=== PATIENT | female | born 2000 | race American Indian/Alaskan Native ===

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

== ENCOUNTER 2021-04-02 13:40 | Emergency (ER) | payer MEDICAID ==
[2021-04-02 14:06] VITALS: BP 118/63
--- NOTE | 2021-04-02 14:11 | Emergency Department Report ---
ED Female HPI - General Chief complaint: Abdominal Pain Stated complaint: CONCIERGE RECEPTIONIST SENT POSS RUPTURED CYST Time Seen by Provider: 04/02/21 13:59 Source: patient Mode of arrival: Wheelchair Limitations: No Limitations - History of Present Illness Initial comments: Chief complaint: Groin pain pelvic pain HPI: 20-year-old female history of ovarian cyst, seizure, recurrent syncope, migraine headache who presents with right groin pain pelvic pain for the last several days. She is currently at the end of her menstrual cycle. She is not sexually active. She had follow-up appointment with her data integration developer Dr. Tse. Due to severe pain patient was referred to ER for evaluation. Patient was diagnosed with ruptured ovarian cyst several months earlier. Today was a routine appointment for follow-up with Dr. Tse data integration developer. Pain is now 19. She denies vaginal discharge. She currently has light menstrual flow. Patient was evaluated at [facility] and data integration developer for recurrent pelvic pain. Unable to diagnose rupture cyst by imaging. However Dr. Tse suspects that patient did have ruptured ovarian cyst. According to mother's report, previous imaging did confirm cystic ovary. Dr. Tse prescribed control pill. Today's appointment was follow-up after initial treatment plan. MD Complaint: pelvic pain -: Gradual, days(s) (Last several days) Severity: severe Severity scale (0 -10): 9 Quality: sharp Consistency: constant Improves with: none Worsens with: none Are you Now?: No Associated Symptoms: other (End of menstrual cycle) - Related Data Sexually active: No Previous Rx's Medication Instructions Recorded Last Taken Type Albuterol Sulfate [Ventolin HFA] 2 puff IH Q4H PRN #1 hfa.aer.ad 12/24/15 Unknown Rx Prednisone [predniSONE 5 mg (6-Day 5 mg PO .TAPER #1 tab.ds.pk 12/24/15 Unknown Rx Pack, 21 Tabs)] traMADoL [Ultram] 50 mg PO Q6HR PRN #20 tablet 12/24/15 Unknown Rx traMADoL [Ultram 50 MG tab] 50 mg PO Q6HR PRN #20 tablet 08/08/17 Unknown Rx Acetaminophen/Codeine [Tylenol 1 tab PO Q6H PRN #30 tab 04/02/21 Unknown Rx /Codeine # 3 tab] Allergies Allergy/AdvReac Type Severity Reaction Status Date / Time cefdinir [From Omnicef] Allergy Swelling Verified 08/07/17 23:56 cyclobenzaprine Allergy Swelling Verified 08/07/17 23:57 [From Flexeril] acetaminophen [From Tylenol] AdvReac Unknown Verified 12/24/15 02:28 ibuprofen [From Motrin] AdvReac Unknown Verified 12/24/15 02:28 peanut AdvReac Unknown Verified 12/24/15 02:27 ED Review of Systems ROS: Stated complaint: CONCIERGE RECEPTIONIST SENT POSS RUPTURED CYST Other details as noted in HPI Comment: All other systems reviewed and negative Constitutional: denies: chills, fever, malaise Respiratory: denies: cough, shortness of breath Gastrointestinal: other (Right groin pelvic pain). denies: abdominal pain, nausea, vomiting, diarrhea Genitourinary: denies: urgency, dysuria, frequency, hematuria ED Past Medical Hx - Past Medical History Previous Medical History?: Yes Hx Hypertension: No Hx Headaches / Migraines: Yes Hx Seizures: Yes Additional medical history: Recurrent syncope, ovarian cyst - Social History Smoking Status: Never Smoker Substance Use Type: None - Medications Home Medications: Home Medications Medication Instructions Recorded Confirmed Last Taken Type Albuterol Sulfate [Ventolin HFA] 2 puff IH Q4H PRN #1 hfa.aer.ad 12/24/15 Unknown Rx Prednisone [predniSONE 5 mg (6-Day 5 mg PO .TAPER #1 tab.ds.pk 12/24/15 Unknown Rx Pack, 21 Tabs)] traMADoL [Ultram] 50 mg PO Q6HR PRN #20 tablet 12/24/15 Unknown Rx traMADoL [Ultram 50 MG tab] 50 mg PO Q6HR PRN #20 tablet 08/08/17 Unknown Rx Acetaminophen/Codeine [Tylenol 1 tab PO Q6H PRN #30 tab 04/02/21 Unknown Rx /Codeine # 3 tab] ED Physical Exam - General Limitations: No Limitations General appearance: alert, in no apparent distress, other (In severe pain) - Head Head exam: Present: atraumatic, normocephalic - Eye Eye exam: Present: normal appearance - ENT ENT exam: Present: mucous membranes moist - Neck Neck exam: Present: normal inspection - Respiratory Respiratory exam: Present: normal lung sounds bilaterally. Absent: respiratory distress - Cardiovascular Cardiovascular Exam: Present: regular rate, normal rhythm, normal heart sounds. Absent: systolic murmur, diastolic murmur, rubs, gallop - GI/Abdominal GI/Abdominal exam: Present: soft, normal bowel sounds. Absent: distended, tenderness, guarding, rebound - Extremities Exam Extremities exam: Present: normal inspection - Neurological Exam Neurological exam: Present: alert, oriented X3 - Psychiatric Psychiatric exam: Present: normal affect, normal mood - Skin Skin exam: Present: warm, dry, intact, normal color. Absent: rash ED Course Vital Signs 04/02/21 04/02/21 14:02 16:41 Temperature 99.6 F Pulse Rate 69 Respiratory 16 Rate Blood Pressure 118/63 [Right] O2 Sat by Pulse 100 99 Oximetry - Reevaluation(s) Reevaluation #1: 04/02/21 14:32 Patient has not been sexually active. She is uncomfortable with transvaginal probe. [employer] Architect recommended oral intake considering patient has empty bladder. ED Medical Decision Making - Lab Data Result diagrams: 04/02/21 14:19 04/02/21 14:19 - Medical Decision Making Recurrent pelvic pain over the last several months refer to emergency department after routine appointment with data integration developer Dr. Alvarado. Patient diagnosis in cludes ovarian cyst rupture, endometriosis, dysmenorrhea. Patient has never been sexually active PID not likely. No abdominal tenderness to indicate appendicitis. After ultrasound is obtained my colleague will make the appropriate disposition. Critical care attestation.: If time is entered above; I have spent that time in minutes in the direct care of this critically ill patient, excluding procedure time. ED Disposition Clinical Impression: Ovarian cyst, Abdominal pain Disposition: 01 HOME / SELF CARE / HOMELESS Is pt being admited?: No Does the pt Need Aspirin: No Condition: Stable Instructions: Ovarian Cyst, Abdominal Pain (ED) Additional Instructions: return if worse Prescriptions: Acetaminophen/Codeine [Tylenol /Codeine # 3 tab] 1 tab PO Q6H PRN #30 tab PRN Reason: pain Referrals: RENEE TSE MD [Staff Physician] - 3-5 Days PRIMARY CARE, [Primary Care Provider] - 3-5 Days
[2021-04-02] MEDS ORDERED: KETOROLAC 30 MG/1 ML INJ IM ONE (14:23)
[2021-04-02] MEDS ORDERED: traMADol 50 MG TAB PO ONE (14:23)
[2021-04-02] MEDS ORDERED: ONDANSETRON 4 MG ODT TAB PO ONE (14:23)
[2021-04-02 14:33] LABS: Basophils # (Auto) 0.1 K/mm3 (0.0-0.1); Basophils % (Auto) 0.7 % (0.0-1.8); Eosinophils % (Auto) 0.3 % (0.0-4.3); Hematocrit 27.2 % (30.3-42.9); Hemoglobin 8.3 gm/dl (10.1-14.3); Lymphocytes % (Auto) 9.9 % (13.4-35.0); Mean Corpuscular HGB Conc 31 % (30-34); Monocytes # (Auto) 0.5 K/mm3 (0.0-0.8); Monocytes % (Auto) 5.1 % (0.0-7.3); Platelet Count 625 K/mm3 (140-440); Red Blood Count 4.25 M/mm3 (3.65-5.03)
[2021-04-02 14:34] LABS: Mean Corpuscular Volume 64 fl (79-97); Red Cell Distribution Width 21.4 % (13.2-15.2)
[2021-04-02 14:52] LABS: Blood Urea Nitrogen 11 mg/dL (7-17); Calcium 9.3 mg/dL (8.4-10.2); Hemolysis Index 1
[2021-04-02 15:01] LABS: Bilirubin,Urine NEG (Negative); Blood,Urine SM (Negative); Color,Urine Yellow (Yellow); Mucus,Urine 3+ /HPF; Urobilinogen,Urine < 2.0 mg/dL (<2.0)
[2021-04-02 15:02] LABS: BUN/Creatinine Ratio 22
[2021-04-02] MEDS ORDERED: MORPHINE 4 MG/1 ML INJ IM ONE (15:27)
--- NOTE | 2021-04-02 16:44 | Ultrasound Report ---
ULTRASOUND PELVIS COMPLETE INDICATION / CLINICAL INFORMATION: Right groin pain. TECHNIQUE: Transabdominal. Duplex Color Doppler used: Yes. COMPARISON: None available FINDINGS: UTERUS: Present. - Appearance (if present): No significant abnormality. - Size in cm (if present): 6.3 x 4.0 x 6.9. - Endometrial Complex (if present): No significant abnormality.. Thickness in cm (if measured) = 0.7 - Mass lesions: None. - Additional findings: None. RIGHT ADNEXA: There are multiple cystic structures in the right adnexa measuring up to 2 cm. The righ t ovary is not clearly defined. It is unclear if this represents multiple ovarian cysts or right hydr osalpinx. Consider correlation with transvaginal exam. Normal color Doppler blood flow. LEFT ADNEXA: No significant ovarian cyst or mass. Normal color Doppler blood flow. URINARY BLADDER: No significant abnormality. FREE FLUID: None. ADDITIONAL FINDINGS: None. IMPRESSION: Unremarkable uterus and left ovary. Abnormal appearance of the right adnexa as described above. This is unclear if this represents ovaria n cystic disease or right hydrosalpinx. See above. No evidence for torsion. Signer Name: Cole Valerio Jr, MD Signed: 04/02/2021 4:39 PM Workstation Name: [id number]
== END 2021-04-02 17:23 | disposition home or self-care (01) ==
LOC: ED 13:40
DX: N83.299 Other ovarian cyst, unspecified side (principal); R10.2 Pelvic and perineal pain; R10.30 Lower abdominal pain, unspecified; G40.909 Epilepsy, unspecified, not intractable, without status epilepticus; G43.909 Migraine, unspecified, not intractable, without status migrainosus; R55 Syncope and collapse; Z88.1 Allergy status to other antibiotic agents; Z88.6 Allergy status to analgesic agent; Z91.010 Allergy to peanuts
CPT/HCPCS: 36415; 76856; 80048; 81001; 84703; 85025; 96372; 99284; J1885; J2270; Q0162

== ENCOUNTER 2021-08-28 10:39 | Outpatient (CLI) | payer MEDICAID ==
--- NOTE | 2021-08-28 12:25 | Cat Scan Report ---
CT ABDOMEN AND PELVIS WITH CONTRAST HISTORY: R10.30 LOWER ABDOMINAL PAIN,UNSPECIFIED OMNI 300 100 ML COMPARISON: Prior CT on 04/22/2021 TECHNIQUE: Routine abdominal and pelvic CT exam performed following intravenous contrast administrat ion.. All CT scans at this location are performed using CT dose reduction for ALARA by means of autom ated exposure control. FINDINGS: CT ABDOMEN: Lung Bases: No significant abnormality. Liver: No significant abnormality. Biliary: No significant abnormality. Spleen: No significant abnormality. Unenlarged. Pancreas: No significant abnormality. Adrenals: No significant abnormality. Kidneys: No significant abnormality. Lymphatics: No lymphadenopathy. Vasculature: No significant abnormality. Bowel/Peritoneum: No significant abnormality. No free air. No free fluid. Appendix not visualized. No pericecal inflammation. CT PELVIC: : The pelvic organs appear grossly normal. There is a small amount of free fluid in the pelvis. Lymphatics: No lymphadenopathy. Osseous Structures: No aggressive appearing osseous lesions. Additional Findings: None IMPRESSION: 1. Small amount of free fluid in the pelvis, likely physiologic. 2. No additional acute findings. Signer Name: Rich Ceron MD Signed: 08/28/2021 12:20 PM Workstation Name: [email or web address]
== END 2021-08-28 10:40 | disposition home or self-care (01) ==
LOC: CT 10:39
PROVIDERS: ATTEND Surgery
DX: R10.30 Lower abdominal pain, unspecified (principal)
CPT/HCPCS: 74177; Q9967

== ENCOUNTER 2021-08-28 12:23 | Emergency (ER) | payer MEDICAID ==
[2021-08-28 12:58] VITALS: BP 133/97
[2021-08-28] MEDS ORDERED: SODIUM CHLORIDE 0.9% 1000 ML 1,000 ML IV ONE (14:33)
[2021-08-28 16:02] LABS: HCG Qualitative,Urine Negative (Negative)
[2021-08-28 16:05] LABS: Basophils % (Auto) 0.1 % (0.0-1.8); Lymphocytes # (Auto) 0.9 K/mm3 (1.2-5.4); Lymphocytes % (Auto) 9.9 % (13.4-35.0); Mean Corpuscular HGB Conc 30 % (30-34); Monocytes # (Auto) 0.2 K/mm3 (0.0-0.8); Monocytes % (Auto) 1.8 % (0.0-7.3); Platelet Count 561 K/mm3 (140-440); Red Blood Count 4.62 M/mm3 (3.65-5.03)
[2021-08-28 16:05] LABS: Bilirubin,Urine NEG (Negative); Blood,Urine MOD (Negative); Color,Urine Straw (Yellow); Protein,Urine <15 mg/dL mg/dL (Negative); Urobilinogen,Urine < 2.0 mg/dL (<2.0)
[2021-08-28 16:06] LABS: Hematocrit 32.2 % (30.3-42.9); Hemoglobin 9.6 gm/dl (10.1-14.3); Mean Corpuscular Volume 70 fl (79-97); Red Cell Distribution Width 20.8 % (13.2-15.2)
[2021-08-28 16:25] LABS: Blood Urea Nitrogen 13 mg/dL (7-17); Calcium 9.9 mg/dL (8.4-10.2); Hemolysis Index 25
[2021-08-28 16:26] LABS: BUN/Creatinine Ratio 33
[2021-08-28] MEDS ORDERED: ACETAMINOPHEN 500 MG TAB ONE (16:34)
[2021-08-28] MEDS ORDERED: ACETAMINOPHEN 500 MG TAB PO ONE (16:38)
--- NOTE | 2021-08-28 16:42 | Emergency Department Report ---
ED General Adult HPI - General Chief complaint: Pain General Stated complaint: SIDE PAIN STOMACH PAIN Time Seen by Provider: 08/28/21 14:32 Source: patient Mode of arrival: Ambulatory Limitations: No Limitations - History of Present Illness Initial comments: pt presents to ed with possible bowel obstruction , pt had history of that , has been taking tramadol for pain , no nausea or vomiting o fever [place] no chets pain -: Gradual Severity scale (0 -10): 2 Quality: aching Consistency: intermittent Improves with: none - Related Data Home Medications Medication Instructions Recorded Confirmed Last Taken clonazePAM [Klonopin] 1 mg PO Q6HR 04/22/21 04/22/21 04/20/21 09:00 1 mg Previous Rx's Medication Instructions Recorded Last Taken Type Albuterol Sulfate [Ventolin HFA] 2 puff IH Q4H PRN #1 hfa.aer.ad 12/24/15 04/21/21 09:00 Rx traMADoL [Ultram 50 MG tab] 50 mg PO Q6HR PRN #20 tablet 12/24/15 04/20/21 09:00 Rx 50 mg clonazePAM [KlonoPIN] 1 mg PO QHS tablet 04/27/21 Unknown Rx levoFLOXacin [Levaquin] 750 mg PO QDAY 4 Days #4 tablet 04/27/21 Unknown Rx metroNIDAZOLE [Flagyl TAB] 500 mg PO Q8HR 5 Days #15 tablet 04/27/21 Unknown Rx ondansetron HCL [Zofran] 4 mg PO Q8H 5 Days #15 tablet 04/27/21 Unknown Rx oxyCODONE /ACETAMINOPHEN [Percocet 1 tab PO Q4H PRN 2 Days #12 tablet 04/27/21 Unknown Rx 5/325 mg] Allergies Allergy/AdvReac Type Severity Reaction Status Date / Time peanut Allergy Mild Unknown Verified 04/24/21 03:39 cefdinir [From Omnicef] Allergy Swelling Verified 04/24/21 03:39 cyclobenzaprine Allergy Swelling Verified 04/24/21 03:39 [From Flexeril] acetaminophen [From Tylenol] AdvReac Unknown Verified 04/24/21 03:39 ibuprofen [From Motrin] AdvReac Unknown Verified 04/24/21 03:39 ED Review of Systems ROS: Stated complaint: SIDE PAIN STOMACH PAIN Other details as noted in HPI Constitutional: denies: chills, fever Eyes: denies: eye pain, eye discharge, vision change ENT: denies: ear pain, throat pain Respiratory: denies: cough, shortness of breath, wheezing Cardiovascular: denies: chest pain, palpitations Endocrine: no symptoms reported Gastrointestinal: denies: abdominal pain, nausea, diarrhea Genitourinary: denies: urgency, dysuria, discharge Musculoskeletal: denies: back pain, joint swelling, arthralgia Skin: denies: rash, lesions Neurological: denies: headache, weakness, paresthesias Psychiatric: denies: anxiety, depression Hematological/Lymphatic: denies: easy bleeding, easy bruising ED Past Medical Hx - Past Medical History Hx Hypertension: No Hx Congestive Heart Failure: No Hx Diabetes: No Hx Headaches / Migraines: Yes Hx Seizures: Yes (pt was told this was possible cause of syncope ) Hx Asthma: Yes (post covid 08/2019 - uses inhaler occasionally) Hx COPD: No Additional medical history: Recurrent syncope, ovarian cyst - Social History Smoking Status: Never Smoker - Medications Home Medications: Home Medications Medication Instructions Recorded Confirmed Last Taken Type Albuterol Sulfate [Ventolin HFA] 2 puff IH Q4H PRN #1 hfa.aer.ad 12/24/15 04/22/21 04/21/21 09:00 Rx traMADoL [Ultram 50 MG tab] 50 mg PO Q6HR PRN #20 tablet 12/24/15 04/22/21 04/20/21 09:00 Rx 50 mg clonazePAM [Klonopin] 1 mg PO Q6HR 04/22/21 04/22/21 04/20/21 09:00 History 1 mg clonazePAM [KlonoPIN] 1 mg PO QHS tablet 04/27/21 Unknown Rx levoFLOXacin [Levaquin] 750 mg PO QDAY 4 Days #4 tablet 04/27/21 Unknown Rx metroNIDAZOLE [Flagyl TAB] 500 mg PO Q8HR 5 Days #15 tablet 04/27/21 Unknown Rx ondansetron HCL [Zofran] 4 mg PO Q8H 5 Days #15 tablet 04/27/21 Unknown Rx oxyCODONE /ACETAMINOPHEN [Percocet 1 tab PO Q4H PRN 2 Days #12 tablet 04/27/21 Unknown Rx 5/325 mg] ED Physical Exam - General Limitations: No Limitations General appearance: alert, in no apparent distress - Head Head exam: Present: atraumatic, normocephalic - Eye Eye exam: Present: normal appearance - ENT ENT exam: Present: mucous membranes moist - Neck Neck exam: Present: normal inspection - Respiratory Respiratory exam: Present: normal lung sounds bilaterally. Absent: respiratory distress - Cardiovascular Cardiovascular Exam: Present: regular rate, normal rhythm. Absent: systolic murmur, diastolic murmur, rubs, gallop - GI/Abdominal GI/Abdominal exam: Present: soft, normal bowel sounds - Extremities Exam Extremities exam: Present: normal inspection - Back Exam Back exam: Present: normal inspection - Neurological Exam Neurological exam: Present: alert, oriented X3 - Psychiatric Psychiatric exam: Present: normal affect, normal mood - Skin Skin exam: Present: warm, dry, intact, normal color. Absent: rash ED Course Vital Signs 08/28/21 08/28/21 12:57 14:08 Temperature 97.4 F L Pulse Rate 84 Respiratory 16 Rate Blood Pressure 133/97 [Left] O2 Sat by Pulse 100 Oximetry ED Medical Decision Making - Lab Data Result diagrams: 08/28/21 15:57 08/28/21 15:57 - Medical Decision Making work up negative , CT scan negative for SBO or abscess, received a call from Surgeon about her and discussed with me her finding and she needs to see somebody for her pain either obgyn or GI but o surgical reason for pain , pt requesting pain meds repeatedly , stomach looks benign on exam , pt is allergic to NSAID and tylenol but not for narcotics, denied her request asked fro tylenol as she said she can tolerate it Critical care attestation.: If time is entered above; I have spent that time in minutes in the direct care of this critically ill patient, excluding procedure time. ED Disposition Clinical Impression: Abdominal pain Disposition: HOME / SELF CARE / HOMELESS Is pt being admited?: No Does the pt Need Aspirin: No Condition: Stable Instructions: Abdominal Pain, Adult, [id number] Referrals: KIET MERIDA JR, MD [Primary Care Provider] - 3-5 Days BRENTON PERDUE MD [Staff Physician] - 3-5 Days
== END 2021-08-28 18:09 | disposition home or self-care (01) ==
LOC: ED 12:23
DX: R10.9 Unspecified abdominal pain (principal); G43.909 Migraine, unspecified, not intractable, without status migrainosus
CPT/HCPCS: 36415; 74177; 80048; 81001; 81025; 82150; 83690; 85025; 96360; 99284; J7030; Q9967; 99283; Q0162